=== PATIENT | female | born 1935 | race Caucasian/White ===

== ENCOUNTER 2019-06-08 13:19 | Emergency (ER) | payer MEDICAID ==
[~2019-06-08] VITALS: Ht 157.5 cm; Wt 48.5 kg
--- NOTE | 2019-06-08 13:23 | NUR ---
PT [facility] FOR HYPERGLYCEMIA. 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
--- NOTE | 2019-06-08 13:29 | NUR ---
SEEN AND EXAMINED BY .
[2019-06-08] MEDS ORDERED: IV NS 0.9% 1,000 ML BAG IV ONE (13:30)
--- NOTE | 2019-06-08 13:38 | NUR ---
URINAL GIVEN BUT UNABLE TO PROVIDE URINE SPECIMEN THIS TIME.
--- NOTE | 2019-06-08 13:43 | NUR ---
ER PHLEB AT BEDSIDE FOR BLOOD DRAW.
[2019-06-08 13:53] LABS: BASOPHILS % (AUTO) 0.5 % (0.0-2.0); EOSINOPHILS % (AUTO) 0.2 % (0.0-6.0); HEMATOCRIT 35 % (33-45); HEMOGLOBIN 11.7 g/dL (11.5-14.8); LYMPHOCYTES # (AUTO) 1.7 /CMM (0.8-4.8); LYMPHOCYTES % (AUTO) 21.9 % (20.0-44.0); MEAN CORPUSCULAR HGB CONC 33 g/dl (31.0-36.0); MEAN CORPUSCULAR VOLUME 91 fL (82-100); MONOCYTES # (AUTO) 0.5 /CMM (0.1-1.30); MONOCYTES % (AUTO) 6.7 % (2.0-12.0); NEUTROPHILS # (AUTO) 5.4 /CMM (1.8-8.9); NEUTROPHILS % (AUTO) 70.7 % (43.0-81.0); PLATELET COUNT (AUTO) 268 /CMM (150-450); RED BLOOD CELL COUNT(AUTO) 3.84 MIL/uL (4.0-5.2); WHITE BLOOD COUNT (AUTO) 7.6 K/uL (4.3-11.0)
[2019-06-08] MEDS ORDERED: NPH,100V SQ ×2 (14:06)
[2019-06-08] MEDS ORDERED: OMEP20CA15 PO (14:06)
[2019-06-08] MEDS ORDERED: PSYL3.4P6 PO (14:06)
[2019-06-08] MEDS ORDERED: MEGE400O4 PO (14:06)
[2019-06-08] MEDS ORDERED: ALEN70TA3 PO (14:06)
[2019-06-08] MEDS ORDERED: HYDR12.55 PO (14:06)
[2019-06-08] MEDS ORDERED: LATA2.5D7 EACHEYE (14:06)
[2019-06-08] MEDS ORDERED: DICL100G16 TP (14:06)
[2019-06-08] MEDS ORDERED: ATOR40TA PO (14:06)
[2019-06-08] MEDS ORDERED: LISI10TA5 PO (14:06)
[2019-06-08] MEDS ORDERED: METF-440 PO (14:06)
[2019-06-08 14:08] LABS: CALCIUM, SERUM 9.7 mg/dL (8.5-10.1); CARBON DIOXIDE 30 mmol/L (21-32); CHLORIDE 100 mmol/L (98-107); CREATININE 1.7 mg/dL (0.6-1.3); GLUCOSE 218 mg/dL (74-106); POTASSIUM 3.3 mmol/L (3.5-5.1); SODIUM SERUM 141 mmol/L (136-145); UREA NITROGEN, BLOOD 33 mg/dL (7-18)
--- NOTE | 2019-06-08 14:08 | NUR ---
DR. KING AT BEDSIDE FOR EVAL.
[2019-06-08 14:19] LABS: ALANINE AMINOTRANSFERASE 18 U/L (12-78); ALBUMIN 3.7 g/dL (3.4-5.0); ALKALINE PHOSPHATASE 81 U/L (46-116); ASPARTATE AMINOTRANSFERASE 14 U/L (15-37); BILIRUBIN,TOTAL 0.2 mg/dL (0.2-1.0); TOTAL PROTEIN, SERUM 7.4 g/dL (6.4-8.2)
--- NOTE | 2019-06-08 16:05 | NUR ---
FOOD TRAY PROVIDED.
[2019-06-08 16:29] LABS: CALCIUM, SERUM 9.3 mg/dL (8.5-10.1); CARBON DIOXIDE 28 mmol/L (21-32); CHLORIDE 102 mmol/L (98-107); CREATININE 1.4 mg/dL (0.6-1.3); GLUCOSE 64 mg/dL (74-106); POTASSIUM 3.2 mmol/L (3.5-5.1); SODIUM SERUM 140 mmol/L (136-145); UREA NITROGEN, BLOOD 29 mg/dL (7-18)
[2019-06-08 18:28] VITALS: BP 139/91
--- NOTE | 2019-06-08 18:28 | NUR ---
IV removed. Catheter intact and site benign. Pressure and 4x4 applied to site. No bleeding noted. Patient discharged to home in stable condition. Written and verbal after care instructions given. Patient verbalizes understanding of instruction.
== END 2019-06-08 18:40 | disposition home or self-care (01) ==
LOC: ER 13:22
DX: E11.65 Type 2 diabetes mellitus with hyperglycemia (principal); I10 Essential (primary) hypertension; Z79.899 Other long term (current) drug therapy
CPT/HCPCS: 36415; 80048-TC; 80076-TC; 82010-TC; 82962-TC; 85025-TC; J7030